=== PATIENT | female | born 1990 | race Caucasian/White ===

== ENCOUNTER 2019-05-12 06:30 | Day surgery (SDC) | payer MEDICAID ==
[~2019-05-12] VITALS: Ht 165.1 cm; Wt 72.1 kg
[2019-05-12] MEDS ORDERED: MIDAZOLAM HCL 5 MG/5 ML VIAL IVP ONE (08:30)
[2019-05-12] MEDS ORDERED: NS IRRIG SOLN 1000 ML IR ONE (08:30)
[2019-05-12] MEDS ORDERED: LR 1,000 ML IV.SOLN IV ONE (08:30)
[2019-05-12] MEDS ORDERED: GLYCOPYRROLATE 0.2 MG/ML VIAL IJ ONE (08:30)
[2019-05-12] MEDS ORDERED: fentaNYL CITRATE/PF 100 MCG/2 ML AMP IVP ONE (08:30)
[2019-05-12] MEDS ORDERED: ROCURONIUM BROMIDE 10 MG/ML (ZEMURON) IV ONE (08:30)
[2019-05-12] MEDS ORDERED: SEVOFLURANE 15 MIN GAS INH ONE (08:30)
[2019-05-12] MEDS ORDERED: BUPIVACAINE /EPINEPHRINE/PF 0.5% 30 ML VIAL INJ ONE (08:30)
[2019-05-12] MEDS ORDERED: KETOROLAC TROMETHAMINE 30 MG VIAL ONE (10:26)
[2019-05-12] MEDS ORDERED: fentaNYL CITRATE/PF 100 MCG/2 ML AMP ONE (10:53)
[2019-05-12 11:18] VITALS: BP_SYST 123
[2019-05-12 11:28] LABS: HCG,QUAL RESULT NEGATIVE (NEGATIVE)
== END 2019-05-12 12:50 | disposition home or self-care (01) ==
LOC: SDS 06:30
PROVIDERS: ATTEND Obstetrics & Gynecology
DX: N83.02 Follicular cyst of left ovary (principal); D27.1 Benign neoplasm of left ovary; Z98.890 Other specified postprocedural states
CPT/HCPCS: 58661; 84703; 88307; J1885; J2250; J3010; J3490 ×2; J7120; 88305